=== PATIENT | female | born 1975 | race Asian ===

== ENCOUNTER 2016-07-12 01:03 | Emergency (ER) | payer OTHER, SELFPAY ==
[2016-07-12] MEDS ORDERED: ONDANSETRON 4MG/2ML VIAL (J2405) As Ordered ONE ×2 (01:40→02:46)
[2016-07-12] MEDS ORDERED: MORPHINE 4 MG/ML 1ML SYRINGE As Ordered ONE (01:40)
[2016-07-12 02:00] LABS: BASO % 0.5 % (0.0-1.0); EOS # 0.2 K/mm3 (0.0-0.50); EOS % 2.5 % (0.0-3.0); LARGE UNSTAINED CELL # 0.1 K/mm3 (0.0-0.4); LYMPH % 28.8 % (24.0-44.0); MEAN CORPUSCULAR HEMOGLOBIN 30.2 pg (27.0-33.0); MEAN CORPUSCULAR HGB CONC 33.2 g/dl (32.0-36.5); MEAN CORPUSCULAR VOLUME 91.1 fl (80.0-96.0); MONO # 0.3 K/mm3 (0.0-0.8); NEUTROPHILS # 4.3 K/mm3 (1.8-7.7); NEUTROPHILS % 62.3 % (36.0-66.0); PLATELET COUNT, AUTOMATED 262 k/mm3 (150-450); RED CELL DISTRIBUTION WIDTH 12.4 % (11.5-14.5); WHITE BLOOD COUNT 6.9 K/mm3 (4.0-10.0)
[2016-07-12 02:27] LABS: ALBUMIN 3.7 GM/DL (3.2-5.2); ALBUMIN/GLOBULIN RATIO 1.12 (1.00-1.93); ALKALINE PHOSPHATASE 71 U/L (45-117); ALT/SGPT 55 U/L (12-78); ANION GAP 7 MEQ/L (8-16); AST/SGOT 41 U/L (15-37); BILIRUBIN,DIRECT 0.2 MG/DL (0.0-0.2); BILIRUBIN,TOTAL 0.4 MG/DL (0.2-1.0); BLOOD UREA NITROGEN 9 MG/DL (7-18); CARBON DIOXIDE LEVEL 25 MEQ/L (21-32); CHLORIDE LEVEL 108 MEQ/L (98-107); CREATININE FOR GFR 0.77 MG/DL (0.55-1.02); GLOMERULAR FILTRATION RATE > 60.0 (>58); GLUCOSE, FASTING 107 MG/DL (70-105); POTASSIUM SERUM 3.7 MEQ/L (3.5-5.1); SODIUM LEVEL 140 MEQ/L (136-145)
[2016-07-12] MEDS ORDERED: ISOVUE-370 76% 100ML VIAL (Q9967) As Ordered ONE (02:39)
--- NOTE | 2016-07-12 04:00 | REPUSA ---
CLINICAL HISTORY: Abdominal pain. TECHNIQUE: Multiple axial, sagittal and coronal CT images were obtained through the abdomen and pelvi s after administration of intravenous contrast material. COMMENTS: Mild diffuse thickening of the wall of the bladder. Large bowel fecal stasis. The liver is of uniform attenuation without mass or defect. There is no intra or extrahepatic biliary ductal dilatation. The spleen is normal. The gallbladder is within normal limits. The pancreas is of normal contour and attenuation characteristics. There is no evidence of adrenal mass. Both kidneys demonstrate prompt and equal nephrograms. The kidneys are normal in size, shape and conf iguration. There is no evidence of renal or ureteral mass. No renal or ureteral calculi are identifie d. There is no hydroureter or hydronephrosis. No evidence for appendicitis. There is no bowel wall thickening. No evidence for small or large richmond l obstruction. There is no evidence of abdominal ascites or lymphadenopathy. There is no evidence of intrinsic or extrinsic bladder mass. There is no pelvic ascites or lymphadeno maycol. Images of the lung bases show no evidence of pleural or parenchymal mass. There are no pleural effusi ons. The bony structures are free of lytic or blastic lesions. IMPRESSION: Diffuse thickening of the wall of the bladder. Large bowel fecal stasis. Thank you for your kind referral of this patient.
--- NOTE | 2016-07-12 04:09 | EDDOCDS ---
Physician Documentation [facility] Name: Haydee Stevens Age: 41 yrs Sex: Female : 1975 Arrival Date: 07/12/2016 Time: 01:03 Bed I2 / M2 Private MD: Debby Disposition: 07/12/16 04:00 Discharged to Home/Self Care. Impression: Cystitis, unspecified with hematuria. - Condition is Stable. - Prescriptions for Pyridium 200 mg Oral Tablet - take 1 tablet by ORAL route every 8 hours for 3 days; 9 tablet. Bactrim DS 800- 160 mg Oral Tablet - take 1 tablet by ORAL route every 12 hours for 5 days; 10 tablet. - Medication Reconciliation, Local Pharmacy Hours form. - Follow up: Debby; When: Call to arrange an appointment; Reason: Recheck today's complaints. - Problem is new. - Symptoms have improved. Historical: - Allergies: No known drug Allergies; - Home Meds: 1. Motrin 400 mg Oral tab (Last dose: 07/12/2016 00:15) 2. Tylenol 325 mg Oral tab 2 tabs (Last dose: 07/11/2016 21:00) - PMHx: none; - PSHx: ; - Social history: Smoking status: Patient states was never smoker of tobacco. No barriers to communication noted, The patient speaks fluent Hungarian, Speaks appropriately for age. - Family history: Not pertinent. - : The pt / caregiver states he / she is not on anticoagulants. Home medication list is obtained from the patient. - Exposure Risk Screening:: None identified. 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 2 in. (157.48 cm); Pain 10/10; 02:17 BP 134 / 87; Pulse 66; Resp 16; Pulse Ox 99% on R/A; Pain 10/10; ld5 03:30 BP 138 / 70; Pulse 64; Resp 16; Pulse Ox 97% ; Pain 0/10; slm 04:07 Temp 97.6(T); slm 04:07 Pain 0/10; slm 01:15 Body Mass Index 30.18 (74.84 kg, 157.48 cm) ko2 MDM: 01:24 UCG by Nursing ordered. mo1 01:37 NS 0.9% 1000 ml IV at bolus once ordered. mo1 01:38 Ondansetron 4 mg IVP once ordered. mo1 01:38 IV Saline Lock ordered. mo1 01:38 Undress patient appropriately for examination ordered. mo1 01:38 morphine 4 mg IVP once ordered. mo1 01:38 Basic Metabolic Profile Ordered. EDMS 01:38 CBC with Diff Ordered. EDMS 01:38 Lipase Ordered. EDMS 01:38 Liver Profile Ordered. EDMS 01:38 Urinalysis Ordered. EDMS 01:39 CT ABD & PELVIS: IV Contrast Only Ordered. EDMS 01:39 NOTHING BY MOUTH+DIET ordered. EDMS 02:05 Financial registration complete. [facility] 02:20 CBC with Diff Reviewed. mo1 02:20 Urinalysis Reviewed. mo1 02:31 Basic Metabolic Profile Reviewed. mo1 02:31 Liver Profile Reviewed. mo1 02:31 Lipase Reviewed. mo1 02:45 Ondansetron 4 mg IVP once ordered. mo1 04:07 [facility] Payment Agreement was scanned into [employer] and attached to record. [facility] Point of Care Testing: Urine : 01:28 hCG Reading: Negative; ko2 Ranges: Administered Medications: 01:55 Drug: NS 0.9% 1000 ml [sodium chloride 0.9 % intravenous solution] Route: IV; Rate: slm bolus; Site: right antecubital; 04:07 Follow up: IV Status: Completed infusion [facility] 01:57 Drug: morphine 4 mg [morphine 4 mg/mL intravenous cartridge (1 mL)] Route: IVP; Site: ld5 right antecubital; 02:17 Follow up: BP 134 / 87; Pulse 66 bpm; Resp 16 bpm; Pulse Ox 99% RA; Pain 10/10 Adult; ld5 Response: Confirmed pt not driving.; Pain is unchanged, physician notified 04:07 Follow up: Pain 0/10 Adult [facility] 01:58 Drug: Ondansetron 4 mg [ondansetron HCl 2 mg/mL intravenous solution (2 mL)] Route: ld5 IVP; Site: right antecubital; 02:56 Drug: Ondansetron 4 mg [ondansetron HCl 2 mg/mL intravenous solution (2 mL)] Route: ld5 IVP; Site: right antecubital; 03:29 Follow up: Response: Nausea is decreased [facility] Signatures: Dispatcher [employer] EDOdalys Granados,RN RN ld5 Jorge Smith DO DO cs11 Earnest Aguirre PA PA mo1 Maryann Callejas LPN LPN [facility] Argelia Sosa RN RN ko2 Zulma Porter [facility] The chart was reviewed and I authenticate all verbal orders and agree with the evaluation and treatment provided.Attachments: 04:07 [facility] Payment Agreement [facility] MTDD
--- NOTE | 2016-07-12 04:10 | EDDOCDS ---
Nurse's Notes [facility] Name: Haydee Stevens Age: 41 yrs Sex: Female : 1975 Arrival Date: 07/12/2016 Time: 01:03 Bed I2 / M2 Private MD: Debby Diagnosis: Cystitis, unspecified with hematuria Presentation: 07/12 01:10 Presenting complaint: Patient states: Stomach cramps since this morning "that feel like ko2 i'm having a kid, i'm vomiting and can barely breath, it hurts". Risk factors: the patient reports Currently mestruating. Suicide/Homicide risk assessment- the patient denies having any suicidal and/or homicidal ideations and does not present with any other emotional, behavioral or mental health complaints. 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 Transition of care: patient was not received from another setting of care. 01:10 Method Of Arrival: Walkin/Carried/Asstd ko2 01:18 Adult Sepsis Screening: The patient does not have new or worsening altered mentation. ko2 Patient's respiratory rate is less than 22. Systolic blood pressure is greater than 100. Patient has a qSOFA score of 0- Negative Sepsis Screen. 01:18 Acuity: NAOMI Level 3 ko2 Triage Assessment: 01:14 General: Appears distressed, Behavior is cooperative, crying, restless. Pain: Location: ko2 suprapubic area Pain currently is 10 out of 10 on a pain scale. HIV screening NA for this visit Offered previously. The patient is triaged at the bedside. See Assessment in Nurses Notes section of ED record. Neurological: Level of Consciousness is awake, alert. Respiratory: Airway is patent Respiratory effort is even, unlabored. GI: Abdomen is non- distended. Derm: No deficits noted. 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 Motrin 400 mg Oral tab (Last dose: 07/12/2016 00:15) 2. Tylenol 325 mg Oral tab 2 tabs (Last dose: 07/11/2016 21:00) - PMHx: none; - PSHx: ; - Social history: Smoking status: Patient states was never smoker of tobacco. No barriers to communication noted, The patient speaks fluent Kyrgyz, Speaks appropriately for age. - Family history: Not pertinent. - : The pt / caregiver states he / she is not on anticoagulants. Home medication list is obtained from the patient. - Exposure Risk Screening:: None identified. Screenin:17 Screening information is obtained from the patient. Fall risk: No risks identified. ko2 Assistance ADL's: requires no assistance with activities of daily living. Abuse/DV Screen: The patient / caregiver reports he/she is: not in a situation that causes fear, pain or injury. Nutritional screening: No deficits noted. Advance Directives: Currently, there is no health care proxy. home support is adequate. Assessment: 01:58 General: Appears uncomfortable, Pt moaning and restless in bed. When questions asked of ld5 pt, pt able to speak in full sentences with no distress. Pain: Location: suprapubic area Pain currently is 10 out of 10 on a pain scale. Pain: Pain began 0730. Neurological: Level of Consciousness is awake, alert. Respiratory: Airway is patent Respiratory effort is even, unlabored. GI: Abdomen is non- distended Bowel sounds present X 4 quads. Abd is tender to palpation in suprapubic area Reports nausea, vomiting. : Denies burning with urination, pain with urination. 02:18 General: Pt laying on side in bed. Reports no change in pain. Provider aware. Will ld5 continue to monitor. 02:56 General: Pt returned from CT vomiting. Provider aware and pt medicated per orders. ld5 Ambulated to bathroom with no distress. Will continue to monitor. 03:29 General: Appears in no apparent distress, comfortable, Behavior is cooperative, pt slm resting on stretcher reports felling better. 04:08 Reassessment: Patient appears in no apparent distress at this time. Patient states slm feeling better. Patient states symptoms have improved. Vital Signs: 01:15 BP 134 / 96; Pulse 67; Resp 20; Temp 98.7; Pulse Ox 97% ; Weight 74.84 kg; Height 5 ft. ko2 2 in. (157.48 cm); Pain 10/10; 02:17 BP 134 / 87; Pulse 66; Resp 16; Pulse Ox 99% on R/A; Pain 10/10; ld5 03:30 BP 138 / 70; Pulse 64; Resp 16; Pulse Ox 97% ; Pain 0/10; slm 04:07 Temp 97.6(T); slm 04:07 Pain 0/10; slm 01:15 Body Mass Index 30.18 (74.84 kg, 157.48 cm) ko2 Vitals: 01:15 Log In Time: July 12, 2016 at 01:03. ko2 ED Course: 01:05 Patient visited by Mani Dacosta Reg. pm4 01:05 Debby is Private Physician. pm4 01:05 Patient moved to Waiting pm4 01:09 Patient moved to Triage 1 ko2 01:18 Triage Initiated ko2 01:28 Earnest Aguirre PA is PHCP. mo1 01:28 Jorge Smith DO is Attending Physician. mo1 01:37 Patient visited by Earnest Aguirre PA. mo1 01:38 Patient moved to I2 / M2 ld5 01:50 Urinalysis Sent. ld5 01:54 Maryann Callejas LPN is Primary Nurse. slm 01:54 Inserted saline lock: 20 gauge in right antecubital area and blood collected. The slm patient tolerated the procedure well. 01:54 Basic Metabolic Profile Sent. slm 01:54 CBC with Diff Sent. slm 01:55 Lipase Sent. slm 01:55 Liver Profile Sent. slm 02:00 Patient visited by Odalys Wilson,JOHNNY. ld5 02:19 Patient visited by Odalys Wilson,RN. ld5 02:57 Patient visited by Odalys Wilson,JOHNNY. ld5 04:00 Debby is Referral Physician. cs11 04:07 [facility] Payment Agreement was scanned into [employer] and attached to record. [facility] 04:07 CT ABD & PELVIS: IV Contrast Only Returned. EDMS 04:07 Discontinued lock intact, bleeding controlled, pressure dressing applied, No slm redness/swelling at site. No procedures done that require assistance. 04:08 Patient visited by Maryann Callejas LPN. slm 04:08 The patient / caregiver is instructed regarding the plan of care and ED course. Patient slm has correct armband on for positive identification. Bed in low position. Call light in reach. Side rails up X 1. Administered Medications: 01:55 Drug: NS 0.9% 1000 ml [sodium chloride 0.9 % intravenous solution] Route: IV; Rate: slm bolus; Site: right antecubital; 04:07 Follow up: IV Status: Completed infusion [facility] 01:57 Drug: morphine 4 mg [morphine 4 mg/mL intravenous cartridge (1 mL)] Route: IVP; Site: ld5 right antecubital; 02:17 Follow up: BP 134 / 87; Pulse 66 bpm; Resp 16 bpm; Pulse Ox 99% RA; Pain 10 Adult; ld5 Response: Confirmed pt not driving.; Pain is unchanged, physician notified 04:07 Follow up: Pain 0/10 Adult [facility] 01:58 Drug: Ondansetron 4 mg [ondansetron HCl 2 mg/mL intravenous solution (2 mL)] Route: ld5 IVP; Site: right antecubital; 02:56 Drug: Ondansetron 4 mg [ondansetron HCl 2 mg/mL intravenous solution (2 mL)] Route: ld5 IVP; Site: right antecubital; 03:29 Follow up: Response: Nausea is decreased slm Point of Care Testing: Urine : 01:28 hCG Reading: Negative; ko2 Ranges: Order Results: Lab Order: Basic Metabolic Profile; SPEC'M 07/12/16 01:51 Test: GLUCOSE, FASTING; Value: 107; Range: 70-105; Abnormal: Above high normal; Units: MG/DL; Status: F Test: BLOOD UREA NITROGEN; Value: 9; Range: 7-18; Units: MG/DL; Status: F Test: CREATININE FOR GFR; Value: 0.77; Range: 0.55-1.02; Units: MG/DL; Status: F Test: GLOMERULAR FILTRATION RATE; Value: > 60.0; Range: >58; Status: F Test: SODIUM LEVEL; Value: 140; Range: 136-145; Units: MEQ/L; Status: F Test: POTASSIUM SERUM; Value: 3.7; Range: 3.5-5.1; Units: MEQ/L; Status: F Test: CHLORIDE LEVEL; Value: 108; Range: 98-107; Abnormal: Above high normal; Units: MEQ/L; Status: F Test: CARBON DIOXIDE LEVEL; Value: 25; Range: 21-32; Units: MEQ/L; Status: F Test: ANION GAP; Value: 7; Range: 8-16; Abnormal: Below low normal; Units: MEQ/L; Status: F Test: CALCIUM LEVEL; Value: 8.0; Range: 8.5-10.1; Abnormal: Below low normal; Units: MG/DL; Status: F Test Note: ; Units are mL/min/1.73 m2 Chronic Kidney Disease Staging per NKF: Stage I & II GFR >=60 Normal to Mildly Decreased Stage III GFR 30-59 Moderately Decreased Stage IV GFR 15-29 Severely Decreased Stage V GFR <15 Very Little GFR Left ESRD GFR <15 on ITINERANT TEACHER ASSISTANT Lab Order: CBC with Diff; SPEC'M 07/12/16 01:51 Test: WHITE BLOOD COUNT; Value: 6.9; Range: 4.0-10.0; Units: K/mm3; Status: F Test: RED BLOOD COUNT; Value: 4.59; Range: 4.00-5.40; Units: M/mm3; Status: F Test: HEMOGLOBIN; Value: 13.9; Range: 12.0-16.0; Units: g/dl; Status: F Test: HEMATOCRIT; Value: 41.9; Range: 36.0-47.0; Units: %; Status: F Test: MEAN CORPUSCULAR VOLUME; Value: 91.1; Range: 80.0-96.0; Units: fl; Status: F Test: MEAN CORPUSCULAR HEMOGLOBIN; Value: 30.2; Range: 27.0-33.0; Units: pg; Status: F Test: MEAN CORPUSCULAR HGB CONC; Value: 33.2; Range: 32.0-36.5; Units: g/dl; Status: F Test: RED CELL DISTRIBUTION WIDTH; Value: 12.4; Range: 11.5-14.5; Units: %; Status: F Test: PLATELET COUNT, AUTOMATED; Value: 262; Range: 150-450; Units: k/mm3; Status: F Test: NEUTROPHILS %; Value: 62.3; Range: 36.0-66.0; Units: %; Status: F Test: LYMPH %; Value: 28.8; Range: 24.0-44.0; Units: %; Status: F Test: MONO %; Value: 4.0; Range: 0.0-5.0; Units: %; Status: F Test: EOS %; Value: 2.5; Range: 0.0-3.0; Units: %; Status: F Test: BASO %; Value: 0.5; Range: 0.0-1.0; Units: %; Status: F Test: LARGE UNSTAINED CELL %; Value: 2.0; Range: 0.0-4.0; Units: %; Status: F Test: NEUTROPHILS #; Value: 4.3; Range: 1.8-7.7; Units: K/mm3; Status: F Test: LYMPH #; Value: 2.0; Range: 1.5-4.5; Units: K/mm3; Status: F Test: MONO #; Value: 0.3; Range: 0.0-0.8; Units: K/mm3; Status: F Test: EOS #; Value: 0.2; Range: 0.0-0.50; Units: K/mm3; Status: F Test: BASO #; Value: 0.0; Range: 0.0-0.2; Units: K/mm3; Status: F Test: LARGE UNSTAINED CELL #; Value: 0.1; Range: 0.0-0.4; Units: K/mm3; Status: F Lab Order: Lipase; SPEC'M 07/12/16 01:51 Test: LIPASE; Value: 204; Range: 73-393; Units: U/L; Status: F Lab Order: Liver Profile; SPEC'M 07/12/16 01:51 Test: AST/SGOT; Value: 41; Range: 15-37; Abnormal: Above high normal; Units: U/L; Status: F Test: ALT/SGPT; Value: 55; Range: 12-78; Units: U/L; Status: F Test: ALKALINE PHOSPHATASE; Value: 71; Range: 45-117; Units: U/L; Status: F Test: BILIRUBIN,TOTAL; Value: 0.4; Range: 0.2-1.0; Units: MG/DL; Status: F Test: BILIRUBIN,DIRECT; Value: 0.2; Range: 0.0-0.2; Units: MG/DL; Status: F Test: TOTAL PROTEIN; Value: 7.0; Range: 6.4-8.2; Units: GM/DL; Status: F Test: ALBUMIN; Value: 3.7; Range: 3.2-5.2; Units: GM/DL; Status: F Test: ALBUMIN/GLOBULIN RATIO; Value: 1.12; Range: 1.00-1.93; Status: F Lab Order: Urinalysis; SPEC'M 07/12/16 01:45 Test: APPEARANCE, URINE; Value: CLOUDY; Range: CLEAR; Abnormal: Above high normal; Status: F Test: COLOR, URINE; Value: RED; Range: YELLOW; Abnormal: Above high normal; Status: F Test: PH,URINE; Value: 6.0; Range: 5.0-9.0; Units: UNITS; Status: F Test: SPECIFIC GRAVITY URINE AUTO; Value: 1.014; Range: 1.002-1.035; Status: F Test: PROTEIN, URINE AUTO; Value: 2+; Range: NEGATIVE; Abnormal: Above high normal; Units: mg/dL; Status: F Test: GLUCOSE, URINE (UA) AUTO; Value: NEGATIVE; Range: NEGATIVE; Units: mg/dL; Status: F Test: KETONE, URINE AUTO; Value: NEGATIVE; Range: NEGATIVE; Units: mg/dL; Status: F Test: UROBILINOGEN, URINE AUTO; Value: 0.2; Range: 0.0-2.0; Units: mg/dL; Status: F Test: BILIRUBIN, URINE AUTO; Value: NEGATIVE; Range: NEGATIVE; Status: F Test: NITRITE, URINE AUTO; Value: NEGATIVE; Range: NEGATIVE; Status: F Test: LEUKOCYTE ESTERASE, URINE AUTO; Value: TRACE; Range: NEGATIVE; Abnormal: Above high normal; Status: F Test: BLOOD, URINE BLOOD; Value: 3+; Range: NEGATIVE; Abnormal: Above high normal; Status: F Test: WBC, URINE AUTO; Value: 31; Range: 0-3; Abnormal: Above high normal; Units: /HPF; Status: F Test: RBC, URINE AUTO; Value: TNTC; Range: 0-3; Abnormal: Above high normal; Units: /HPF; Status: F Test: BACTERIA, URINE AUTO; Value: 1+; Range: NEGATIVE; Abnormal: Above high normal; Status: F Test: SQUAMOUS EPITHELIAL CELL UR AU; Value: 4; Range: 0-6; Units: /HPF; Status: F Test: HYALINE CAST, URINE AUTO; Value: 0; Range: 0-1; Units: /LPF; Status: F Radiology Order: CT ABD & PELVIS: IV Contrast Only Test: CT ABD & PELVIS: IV Contrast Only REASON FOR EXAMINATION: mid lower abd pain; ; CLINICAL HISTORY: Abdominal pain.; TECHNIQUE: Multiple axial, sagittal and coronal CT images were obtained through the abdomen and pelvi; s after administration of intravenous contrast material.; COMMENTS:; Mild diffuse thickening of the wall of the bladder.; Large bowel fecal stasis.; The liver is of uniform attenuation without mass or defect. There is no intra or extrahepatic biliary; ductal dilatation. The spleen is normal. The gallbladder is within normal limits. The pancreas is of; normal contour and attenuation characteristics. There is no evidence of adrenal mass.; Both kidneys demonstrate prompt and equal nephrograms. The kidneys are normal in size, shape and conf; iguration. There is no evidence of renal or ureteral mass. No renal or ureteral calculi are identifie; d. There is no hydroureter or hydronephrosis.; No evidence for appendicitis. There is no bowel wall thickening. No evidence for small or large richmond; l obstruction. There is no evidence of abdominal ascites or lymphadenopathy.; There is no evidence of intrinsic or extrinsic bladder mass. There is no pelvic ascites or lymphadeno; maycol.; Images of the lung bases show no evidence of pleural or parenchymal mass. There are no pleural effusi; ons.; The bony structures are free of lytic or blastic lesions.; IMPRESSION:; Diffuse thickening of the wall of the bladder.; Large bowel fecal stasis.; Thank you for your kind referral of this patient.; ; Outcome: 04:00 Discharge ordered by Provider. cs11 04:07 Discharge Assessment: Patient awake, alert and oriented x 3. No cognitive and/or slm functional deficits noted. Patient verbalized understanding of disposition instructions. Patient awake and alert. obeys commands, patient administered narcotics - yes. Pt provided with safe discharge. The following High Risk Discharge criteria are identified: None. Discharged to home ambulatory, with family. Condition: good Condition: improved. Discharge instructions given to patient, Instructed on discharge instructions, follow up and referral plans. medication usage, Demonstrated understanding of instructions, medications, Pt was receptive of discharge instructions/ teaching. Prescriptions given X 2. CT Study completed. Property :Personal belongings accompany Pt. 04:08 Patient left the ED. elvis Signatures: Dispatcher [employer] EDOdalys Granados,RN RN ld5 Jorge Smith DO DO cs11 Earnest Aguirre, PA PA mo1 Maryann Callejas,BOOKBINDER CHIEF BOOKBINDER CHIEF Argelia Ledezma RN RN ko2 Zulma Porter [facility] Mani Dacosta, Reg Reg pm4 Corrections: (The following items were deleted from the chart) 02:19 01:58 General: Appears uncomfortable, ld5 ld5 MTDD
--- NOTE | 2016-07-14 05:10 | EDDOCDS ---
Physician Documentation [facility] Name: Haydee Stevens Age: 41 yrs Sex: Female : 1975 Arrival Date: 07/12/2016 Time: 01:03 Bed I2 / M2 Private MD: Debby Disposition: 07/12/16 04:00 Discharged to Home/Self Care. Impression: Cystitis, unspecified with hematuria. - Condition is Stable. - Prescriptions for Pyridium 200 mg Oral Tablet - take 1 tablet by ORAL route every 8 hours for 3 days; 9 tablet. Bactrim DS 800- 160 mg Oral Tablet - take 1 tablet by ORAL route every 12 hours for 5 days; 10 tablet. - Medication Reconciliation, Local Pharmacy Hours form. - Follow up: Debby; When: Call to arrange an appointment; Reason: Recheck today's complaints. - Problem is new. - Symptoms have improved. Historical: - Allergies: No known drug Allergies; - Home Meds: 1. Motrin 400 mg Oral tab (Last dose: 07/12/2016 00:15) 2. Tylenol 325 mg Oral tab 2 tabs (Last dose: 07/11/2016 21:00) - PMHx: none; - PSHx: ; - Social history: Smoking status: Patient states was never smoker of tobacco. No barriers to communication noted, The patient speaks fluent Hungarian, Speaks appropriately for age. - Family history: Not pertinent. - : The pt / caregiver states he / she is not on anticoagulants. Home medication list is obtained from the patient. - Exposure Risk Screening:: None identified. DIRECTOR OF MEDICAL EDUCATION: 07/12 01:15 LMP 07/12/2016 ko2 Vital Signs: 01:15 BP 134 / 96; Pulse 67; Resp 20; Temp 98.7; Pulse Ox 97% ; Weight 74.84 kg / 164.99 lbs; ko2 Height 5 ft. 2 in. (157.48 cm); Pain 10/10; 02:17 BP 134 / 87; Pulse 66; Resp 16; Pulse Ox 99% on R/A; Pain 10/10; ld5 03:30 BP 138 / 70; Pulse 64; Resp 16; Pulse Ox 97% ; Pain 0/10; slm 04:07 Temp 97.6(T); slm 04:07 Pain 0/10; slm 01:15 Body Mass Index 30.18 (74.84 kg, 157.48 cm) ko2 MDM: 01:24 UCG by Nursing ordered. mo1 01:37 NS 0.9% 1000 ml IV at bolus once ordered. mo1 01:38 Ondansetron 4 mg IVP once ordered. mo1 01:38 IV Saline Lock ordered. mo1 01:38 Undress patient appropriately for examination ordered. mo1 01:38 morphine 4 mg IVP once ordered. mo1 01:38 Basic Metabolic Profile Ordered. EDMS 01:38 CBC with Diff Ordered. EDMS 01:38 Lipase Ordered. EDMS 01:38 Liver Profile Ordered. EDMS 01:38 Urinalysis Ordered. EDMS 01:39 CT ABD & PELVIS: IV Contrast Only Ordered. EDMS 01:39 NOTHING BY MOUTH+DIET ordered. EDMS 02:05 Financial registration complete. slh 02:20 CBC with Diff Reviewed. mo1 02:20 Urinalysis Reviewed. mo1 02:31 Basic Metabolic Profile Reviewed. mo1 02:31 Liver Profile Reviewed. mo1 02:31 Lipase Reviewed. mo1 02:45 Ondansetron 4 mg IVP once ordered. mo1 04:07 [facility] [place] Payment Agreement was scanned into InvenQuery and attached to record. [facility] 14:11 T-Sheet-- Draft Copy was scanned into Inven[employer] and attached to record. Point of Care Testing: Urine : 01:28 hCG Reading: Negative; ko2 Ranges: Administered Medications: 01:55 Drug: NS 0.9% 1000 ml [sodium chloride 0.9 % intravenous solution] Route: IV; Rate: slm bolus; Site: right antecubital; 04:07 Follow up: IV Status: Completed infusion slm 01:57 Drug: morphine 4 mg [morphine 4 mg/mL intravenous cartridge (1 mL)] Route: IVP; Site: ld5 right antecubital; 02:17 Follow up: BP 134 / 87; Pulse 66 bpm; Resp 16 bpm; Pulse Ox 99% RA; Pain 10/10 Adult; ld5 Response: Confirmed pt not driving.; Pain is unchanged, physician notified 04:07 Follow up: Pain 0/10 Adult [facility] 01:58 Drug: Ondansetron 4 mg [ondansetron HCl 2 mg/mL intravenous solution (2 mL)] Route: ld5 IVP; Site: right antecubital; 02:56 Drug: Ondansetron 4 mg [ondansetron HCl 2 mg/mL intravenous solution (2 mL)] Route: ld5 IVP; Site: right antecubital; 03:29 Follow up: Response: Nausea is decreased sl Signatures: Dispatcher MedHost EDMS Cynthia Perez, Oniel Reg gb Odalys WilsonRN RN ld5 Jorge Smith DO DO cs11 Earnest Aguirre PA PA mo1 Maryann Callejas LPN LPN sl Argelia Sosa RN RN ko2 Zulma Porter [facility] The chart was reviewed and I authenticate all verbal orders and agree with the evaluation and treatment provided.Attachments: 04:07 [facility] Payment Agreement [facility] 14:11 T-Sheet-- Draft Copy Chart Complete MTDD
--- NOTE | 2016-07-14 05:10 | EDDOCDS ---
Physician Documentation [facility] Name: Haydee Stevens Age: 41 yrs Sex: Female : 1975 Arrival Date: 07/12/2016 Time: 01:03 Bed I2 / M2 Private MD: Debby Disposition: 07/12/16 04:00 Discharged to Home/Self Care. Impression: Cystitis, unspecified with hematuria. - Condition is Stable. - Prescriptions for Pyridium 200 mg Oral Tablet - take 1 tablet by ORAL route every 8 hours for 3 days; 9 tablet. Bactrim DS 800- 160 mg Oral Tablet - take 1 tablet by ORAL route every 12 hours for 5 days; 10 tablet. - Medication Reconciliation, Local Pharmacy Hours form. - Follow up: Debby; When: Call to arrange an appointment; Reason: Recheck today's complaints. - Problem is new. - Symptoms have improved. Historical: - Allergies: No known drug Allergies; - Home Meds: 1. Motrin 400 mg Oral tab (Last dose: 07/12/2016 00:15) 2. Tylenol 325 mg Oral tab 2 tabs (Last dose: 07/11/2016 21:00) - PMHx: none; - PSHx: ; - Social history: Smoking status: Patient states was never smoker of tobacco. No barriers to communication noted, The patient speaks fluent Hungarian, Speaks appropriately for age. - Family history: Not pertinent. - : The pt / caregiver states he / she is not on anticoagulants. Home medication list is obtained from the patient. - Exposure Risk Screening:: None identified. 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 2 in. (157.48 cm); Pain 10/10; 02:17 BP 134 / 87; Pulse 66; Resp 16; Pulse Ox 99% on R/A; Pain 10/10; ld5 03:30 BP 138 / 70; Pulse 64; Resp 16; Pulse Ox 97% ; Pain 0/10; slm 04:07 Temp 97.6(T); slm 04:07 Pain 0/10; slm 01:15 Body Mass Index 30.18 (74.84 kg, 157.48 cm) ko2 MDM: 01:24 UCG by Nursing ordered. mo1 01:37 NS 0.9% 1000 ml IV at bolus once ordered. mo1 01:38 Ondansetron 4 mg IVP once ordered. mo1 01:38 IV Saline Lock ordered. mo1 01:38 Undress patient appropriately for examination ordered. mo1 01:38 morphine 4 mg IVP once ordered. mo1 01:38 Basic Metabolic Profile Ordered. EDMS 01:38 CBC with Diff Ordered. EDMS 01:38 Lipase Ordered. EDMS 01:38 Liver Profile Ordered. EDMS 01:38 Urinalysis Ordered. EDMS 01:39 CT ABD & PELVIS: IV Contrast Only Ordered. EDMS 01:39 NOTHING BY MOUTH+DIET ordered. EDMS 02:05 Financial registration complete. slh 02:20 CBC with Diff Reviewed. mo1 02:20 Urinalysis Reviewed. mo1 02:31 Basic Metabolic Profile Reviewed. mo1 02:31 Liver Profile Reviewed. mo1 02:31 Lipase Reviewed. mo1 02:45 Ondansetron 4 mg IVP once ordered. mo1 04:07 [facility] [place] Payment Agreement was scanned into ScaleMP and attached to record. [facility] 14:11 T-Sheet-- Draft Copy was scanned into Scale[employer] and attached to record. Point of Care Testing: Urine : 01:28 hCG Reading: Negative; ko2 Ranges: Administered Medications: 01:55 Drug: NS 0.9% 1000 ml [sodium chloride 0.9 % intravenous solution] Route: IV; Rate: slm bolus; Site: right antecubital; 04:07 Follow up: IV Status: Completed infusion slm 01:57 Drug: morphine 4 mg [morphine 4 mg/mL intravenous cartridge (1 mL)] Route: IVP; Site: ld5 right antecubital; 02:17 Follow up: BP 134 / 87; Pulse 66 bpm; Resp 16 bpm; Pulse Ox 99% RA; Pain 10/10 Adult; ld5 Response: Confirmed pt not driving.; Pain is unchanged, physician notified 04:07 Follow up: Pain 0/10 Adult [facility] 01:58 Drug: Ondansetron 4 mg [ondansetron HCl 2 mg/mL intravenous solution (2 mL)] Route: ld5 IVP; Site: right antecubital; 02:56 Drug: Ondansetron 4 mg [ondansetron HCl 2 mg/mL intravenous solution (2 mL)] Route: ld5 IVP; Site: right antecubital; 03:29 Follow up: Response: Nausea is decreased sl Signatures: Dispatcher MedHost EDMS Cynthia Perez, Oniel Reg gb Odalys WilsonRN RN ld5 Jorge Smith DO DO cs11 Earnest Aguirre PA PA mo1 Maryann Callejas LPN LPN sl Argelia Sosa RN RN ko2 Zulma Porter [facility] The chart was reviewed and I authenticate all verbal orders and agree with the evaluation and treatment provided.Attachments: 04:07 [facility] Payment Agreement [facility] 14:11 T-Sheet-- Draft Copy Chart Complete MTDD
--- NOTE | 2016-07-14 05:10 | EDDOCDS ---
Nurse's Notes [facility] Name: Haydee Stevens Age: 41 yrs Sex: Female : 1975 Arrival Date: 07/12/2016 Time: 01:03 Bed I2 / M2 Private MD: Debby Diagnosis: Cystitis, unspecified with hematuria Presentation: 07/12 01:10 Presenting complaint: Patient states: Stomach cramps since this morning "that feel like ko2 i'm having a kid, i'm vomiting and can barely breath, it hurts". Risk factors: the patient reports Currently mestruating. Suicide/Homicide risk assessment- the patient denies having any suicidal and/or homicidal ideations and does not present with any other emotional, behavioral or mental health complaints. Status: Patient is not a environmental services associate or dependent. 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 Transition of care: patient was not received from another setting of care. 01:10 Method Of Arrival: Walkin/Carried/Asstd ko2 01:18 Adult Sepsis Screening: The patient does not have new or worsening altered mentation. ko2 Patient's respiratory rate is less than 22. Systolic blood pressure is greater than 100. Patient has a qSOFA score of 0- Negative Sepsis Screen. 01:18 Acuity: NAOMI Level 3 ko2 Triage Assessment: 01:14 General: Appears distressed, Behavior is cooperative, crying, restless. Pain: Location: ko2 suprapubic area Pain currently is 10 out of 10 on a pain scale. HIV screening NA for this visit Offered previously. The patient is triaged at the bedside. See Assessment in Nurses Notes section of ED record. Neurological: Level of Consciousness is awake, alert. Respiratory: Airway is patent Respiratory effort is even, unlabored. GI: Abdomen is non- distended. Derm: No deficits noted. ASSISTANT DIRECTOR OF ADMISSIONS: 01:15 LMP 07/12/2016 ko2 Historical: - Allergies: No known drug Allergies; - Home Meds: 1. Motrin 400 mg Oral tab (Last dose: 07/12/2016 00:15) 2. Tylenol 325 mg Oral tab 2 tabs (Last dose: 07/11/2016 21:00) - PMHx: none; - PSHx: ; - Social history: Smoking status: Patient states was never smoker of tobacco. No barriers to communication noted, The patient speaks fluent Danish, Speaks appropriately for age. - Family history: Not pertinent. - : The pt / caregiver states he / she is not on anticoagulants. Home medication list is obtained from the patient. - Exposure Risk Screening:: None identified. Screenin:17 Screening information is obtained from the patient. Fall risk: No risks identified. ko2 Assistance ADL's: requires no assistance with activities of daily living. Abuse/DV Screen: The patient / caregiver reports he/she is: not in a situation that causes fear, pain or injury. Nutritional screening: No deficits noted. Advance Directives: Currently, there is no health care proxy. home support is adequate. Assessment: 01:58 General: Appears uncomfortable, Pt moaning and restless in bed. When questions asked of ld5 pt, pt able to speak in full sentences with no distress. Pain: Location: suprapubic area Pain currently is 10 out of 10 on a pain scale. Pain: Pain began 0730. Neurological: Level of Consciousness is awake, alert. Respiratory: Airway is patent Respiratory effort is even, unlabored. GI: Abdomen is non- distended Bowel sounds present X 4 quads. Abd is tender to palpation in suprapubic area Reports nausea, vomiting. : Denies burning with urination, pain with urination. 02:18 General: Pt laying on side in bed. Reports no change in pain. Provider aware. Will ld5 continue to monitor. 02:56 General: Pt returned from CT vomiting. Provider aware and pt medicated per orders. ld5 Ambulated to bathroom with no distress. Will continue to monitor. 03:29 General: Appears in no apparent distress, comfortable, Behavior is cooperative, pt slm resting on stretcher reports felling better. 04:08 Reassessment: Patient appears in no apparent distress at this time. Patient states slm feeling better. Patient states symptoms have improved. Vital Signs: 01:15 BP 134 / 96; Pulse 67; Resp 20; Temp 98.7; Pulse Ox 97% ; Weight 74.84 kg; Height 5 ft. ko2 2 in. (157.48 cm); Pain 10/10; 02:17 BP 134 / 87; Pulse 66; Resp 16; Pulse Ox 99% on R/A; Pain 10/10; ld5 03:30 BP 138 / 70; Pulse 64; Resp 16; Pulse Ox 97% ; Pain 0/10; slm 04:07 Temp 97.6(T); slm 04:07 Pain 0/10; slm 01:15 Body Mass Index 30.18 (74.84 kg, 157.48 cm) ko2 Vitals: 01:15 Log In Time: July 12, 2016 at 01:03. ko2 ED Course: 01:05 Patient visited by Mani Dacosta Reg. pm4 01:05 Debby is Private Physician. pm4 01:05 Patient moved to Waiting pm4 01:09 Patient moved to Triage 1 ko2 01:18 Triage Initiated ko2 01:28 Earnest Aguirre PA is PHCP. mo1 01:28 Jorge Smith DO is Attending Physician. mo1 01:37 Patient visited by Earnest Aguirre PA. mo1 01:38 Patient moved to I2 / M2 ld5 01:50 Urinalysis Sent. ld5 01:54 Maryann Callejas LPN is Primary Nurse. slm 01:54 Inserted saline lock: 20 gauge in right antecubital area and blood collected. The slm patient tolerated the procedure well. 01:54 Basic Metabolic Profile Sent. slm 01:54 CBC with Diff Sent. slm 01:55 Lipase Sent. slm 01:55 Liver Profile Sent. slm 02:00 Patient visited by Odalys Wilson,JOHNNY. ld5 02:19 Patient visited by Odalys Wilson,RN. ld5 02:57 Patient visited by Odalys Wilson,JOHNNY. ld5 04:00 Debby is Referral Physician. cs11 04:07 [facility] Payment Agreement was scanned into Tellja and attached to record. [facility] 04:07 CT ABD & PELVIS: IV Contrast Only Returned. EDMS 04:07 Discontinued lock intact, bleeding controlled, pressure dressing applied, No slm redness/swelling at site. No procedures done that require assistance. 04:08 Patient visited by Maryann Callejas LPN. slm 04:08 The patient / caregiver is instructed regarding the plan of care and ED course. Patient slm has correct armband on for positive identification. Bed in low position. Call light in reach. Side rails up X 1. 14:11 T-Sheet-- Draft Copy was scanned into Tellja and attached to record. gb Administered Medications: 01:55 Drug: NS 0.9% 1000 ml [sodium chloride 0.9 % intravenous solution] Route: IV; Rate: slm bolus; Site: right antecubital; 04:07 Follow up: IV Status: Completed infusion [facility] 01:57 Drug: morphine 4 mg [morphine 4 mg/mL intravenous cartridge (1 mL)] Route: IVP; Site: ld5 right antecubital; 02:17 Follow up: BP 134 / 87; Pulse 66 bpm; Resp 16 bpm; Pulse Ox 99% RA; Pain 10/ Adult; ld5 Response: Confirmed pt not driving.; Pain is unchanged, physician notified 04:07 Follow up: Pain 0/10 Adult [facility] 01:58 Drug: Ondansetron 4 mg [ondansetron HCl 2 mg/mL intravenous solution (2 mL)] Route: ld5 IVP; Site: right antecubital; 02:56 Drug: Ondansetron 4 mg [ondansetron HCl 2 mg/mL intravenous solution (2 mL)] Route: ld5 IVP; Site: right antecubital; 03:29 Follow up: Response: Nausea is decreased slm Point of Care Testing: Urine : 01:28 hCG Reading: Negative; ko2 Ranges: Order Results: Lab Order: Basic Metabolic Profile; SPEC'M 07/12/16 01:51 Test: GLUCOSE, FASTING; Value: 107; Range: 70-105; Abnormal: Above high normal; Units: MG/DL; Status: F Test: BLOOD UREA NITROGEN; Value: 9; Range: 7-18; Units: MG/DL; Status: F Test: CREATININE FOR GFR; Value: 0.77; Range: 0.55-1.02; Units: MG/DL; Status: F Test: GLOMERULAR FILTRATION RATE; Value: > 60.0; Range: >58; Status: F Test: SODIUM LEVEL; Value: 140; Range: 136-145; Units: MEQ/L; Status: F Test: POTASSIUM SERUM; Value: 3.7; Range: 3.5-5.1; Units: MEQ/L; Status: F Test: CHLORIDE LEVEL; Value: 108; Range: 98-107; Abnormal: Above high normal; Units: MEQ/L; Status: F Test: CARBON DIOXIDE LEVEL; Value: 25; Range: 21-32; Units: MEQ/L; Status: F Test: ANION GAP; Value: 7; Range: 8-16; Abnormal: Below low normal; Units: MEQ/L; Status: F Test: CALCIUM LEVEL; Value: 8.0; Range: 8.5-10.1; Abnormal: Below low normal; Units: MG/DL; Status: F Test Note: ; Units are mL/min/1.73 m2 Chronic Kidney Disease Staging per NKF: Stage I & II GFR >=60 Normal to Mildly Decreased Stage III GFR 30-59 Moderately Decreased Stage IV GFR 15-29 Severely Decreased Stage V GFR <15 Very Little GFR Left ESRD GFR <15 on PROOF TECHNICIAN HELPER Lab Order: CBC with Diff; SPEC'M 07/12/16 01:51 Test: WHITE BLOOD COUNT; Value: 6.9; Range: 4.0-10.0; Units: K/mm3; Status: F Test: RED BLOOD COUNT; Value: 4.59; Range: 4.00-5.40; Units: M/mm3; Status: F Test: HEMOGLOBIN; Value: 13.9; Range: 12.0-16.0; Units: g/dl; Status: F Test: HEMATOCRIT; Value: 41.9; Range: 36.0-47.0; Units: %; Status: F Test: MEAN CORPUSCULAR VOLUME; Value: 91.1; Range: 80.0-96.0; Units: fl; Status: F Test: MEAN CORPUSCULAR HEMOGLOBIN; Value: 30.2; Range: 27.0-33.0; Units: pg; Status: F Test: MEAN CORPUSCULAR HGB CONC; Value: 33.2; Range: 32.0-36.5; Units: g/dl; Status: F Test: RED CELL DISTRIBUTION WIDTH; Value: 12.4; Range: 11.5-14.5; Units: %; Status: F Test: PLATELET COUNT, AUTOMATED; Value: 262; Range: 150-450; Units: k/mm3; Status: F Test: NEUTROPHILS %; Value: 62.3; Range: 36.0-66.0; Units: %; Status: F Test: LYMPH %; Value: 28.8; Range: 24.0-44.0; Units: %; Status: F Test: MONO %; Value: 4.0; Range: 0.0-5.0; Units: %; Status: F Test: EOS %; Value: 2.5; Range: 0.0-3.0; Units: %; Status: F Test: BASO %; Value: 0.5; Range: 0.0-1.0; Units: %; Status: F Test: LARGE UNSTAINED CELL %; Value: 2.0; Range: 0.0-4.0; Units: %; Status: F Test: NEUTROPHILS #; Value: 4.3; Range: 1.8-7.7; Units: K/mm3; Status: F Test: LYMPH #; Value: 2.0; Range: 1.5-4.5; Units: K/mm3; Status: F Test: MONO #; Value: 0.3; Range: 0.0-0.8; Units: K/mm3; Status: F Test: EOS #; Value: 0.2; Range: 0.0-0.50; Units: K/mm3; Status: F Test: BASO #; Value: 0.0; Range: 0.0-0.2; Units: K/mm3; Status: F Test: LARGE UNSTAINED CELL #; Value: 0.1; Range: 0.0-0.4; Units: K/mm3; Status: F Lab Order: Lipase; SPEC' 07/12/16 01:51 Test: LIPASE; Value: 204; Range: 73-393; Units: U/L; Status: F Lab Order: Liver Profile; SPEC' 07/12/16 01:51 Test: AST/SGOT; Value: 41; Range: 15-37; Abnormal: Above high normal; Units: U/L; Status: F Test: ALT/SGPT; Value: 55; Range: 12-78; Units: U/L; Status: F Test: ALKALINE PHOSPHATASE; Value: 71; Range: 45-117; Units: U/L; Status: F Test: BILIRUBIN,TOTAL; Value: 0.4; Range: 0.2-1.0; Units: MG/DL; Status: F Test: BILIRUBIN,DIRECT; Value: 0.2; Range: 0.0-0.2; Units: MG/DL; Status: F Test: TOTAL PROTEIN; Value: 7.0; Range: 6.4-8.2; Units: GM/DL; Status: F Test: ALBUMIN; Value: 3.7; Range: 3.2-5.2; Units: GM/DL; Status: F Test: ALBUMIN/GLOBULIN RATIO; Value: 1.12; Range: 1.00-1.93; Status: F Lab Order: Urinalysis; SPEC'M 07/12/16 01:45 Test: APPEARANCE, URINE; Value: CLOUDY; Range: CLEAR; Abnormal: Above high normal; Status: F Test: COLOR, URINE; Value: RED; Range: YELLOW; Abnormal: Above high normal; Status: F Test: PH,URINE; Value: 6.0; Range: 5.0-9.0; Units: UNITS; Status: F Test: SPECIFIC GRAVITY URINE AUTO; Value: 1.014; Range: 1.002-1.035; Status: F Test: PROTEIN, URINE AUTO; Value: 2+; Range: NEGATIVE; Abnormal: Above high normal; Units: mg/dL; Status: F Test: GLUCOSE, URINE (UA) AUTO; Value: NEGATIVE; Range: NEGATIVE; Units: mg/dL; Status: F Test: KETONE, URINE AUTO; Value: NEGATIVE; Range: NEGATIVE; Units: mg/dL; Status: F Test: UROBILINOGEN, URINE AUTO; Value: 0.2; Range: 0.0-2.0; Units: mg/dL; Status: F Test: BILIRUBIN, URINE AUTO; Value: NEGATIVE; Range: NEGATIVE; Status: F Test: NITRITE, URINE AUTO; Value: NEGATIVE; Range: NEGATIVE; Status: F Test: LEUKOCYTE ESTERASE, URINE AUTO; Value: TRACE; Range: NEGATIVE; Abnormal: Above high normal; Status: F Test: BLOOD, URINE BLOOD; Value: 3+; Range: NEGATIVE; Abnormal: Above high normal; Status: F Test: WBC, URINE AUTO; Value: 31; Range: 0-3; Abnormal: Above high normal; Units: /HPF; Status: F Test: RBC, URINE AUTO; Value: TNTC; Range: 0-3; Abnormal: Above high normal; Units: /HPF; Status: F Test: BACTERIA, URINE AUTO; Value: 1+; Range: NEGATIVE; Abnormal: Above high normal; Status: F Test: SQUAMOUS EPITHELIAL CELL UR AU; Value: 4; Range: 0-6; Units: /HPF; Status: F Test: HYALINE CAST, URINE AUTO; Value: 0; Range: 0-1; Units: /LPF; Status: F Radiology Order: CT ABD & PELVIS: IV Contrast Only Test: CT ABD & PELVIS: IV Contrast Only REASON FOR EXAMINATION: mid lower abd pain; ; CLINICAL HISTORY: Abdominal pain.; TECHNIQUE: Multiple axial, sagittal and coronal CT images were obtained through the abdomen and pelvi; s after administration of intravenous contrast material.; COMMENTS:; Mild diffuse thickening of the wall of the bladder.; Large bowel fecal stasis.; The liver is of uniform attenuation without mass or defect. There is no intra or extrahepatic biliary; ductal dilatation. The spleen is normal. The gallbladder is within normal limits. The pancreas is of; normal contour and attenuation characteristics. There is no evidence of adrenal mass.; Both kidneys demonstrate prompt and equal nephrograms. The kidneys are normal in size, shape and conf; iguration. There is no evidence of renal or ureteral mass. No renal or ureteral calculi are identifie; d. There is no hydroureter or hydronephrosis.; No evidence for appendicitis. There is no bowel wall thickening. No evidence for small or large [place]; l obstruction. There is no evidence of abdominal ascites or lymphadenopathy.; There is no evidence of intrinsic or extrinsic bladder mass. There is no pelvic ascites or lymphadeno; maycol.; Images of the lung bases show no evidence of pleural or parenchymal mass. There are no pleural effusi; ons.; The bony structures are free of lytic or blastic lesions.; IMPRESSION:; Diffuse thickening of the wall of the bladder.; Large bowel fecal stasis.; Thank you for your kind referral of this patient.; ; Outcome: 04:00 Discharge ordered by Provider. cs11 04:07 Discharge Assessment: Patient awake, alert and oriented x 3. No cognitive and/or slm functional deficits noted. Patient verbalized understanding of disposition instructions. Patient awake and alert. obeys commands, patient administered narcotics - yes. Pt provided with safe discharge. The following High Risk Discharge criteria are identified: None. Discharged to home ambulatory, with family. Condition: good Condition: improved. Discharge instructions given to patient, Instructed on discharge instructions, follow up and referral plans. medication usage, Demonstrated understanding of instructions, medications, Pt was receptive of discharge instructions/ teaching. Prescriptions given X 2. CT Study completed. Property :Personal belongings accompany Pt. 04:08 Patient left the ED. slm Signatures: Dispatcher MedHost EDMS Cynthia Perez, Reg Reg gb Odalys Wilson,RN RN ld5 Jorge Smith DO DO cs11 Earnest Aguirre PA PA mo1 Maryann Callejas,GLOVE WRAPPER GLOVE WRAPPER Argelia Mazariegos RN RN lupe2 Zulma Porter [facility] Mani Dacosta, Reg Reg pm4 Corrections: (The following items were deleted from the chart) 02:19 01:58 General: Appears uncomfortable, ld5 ld5 Chart Complete MTDD
== END 2016-07-12 04:08 | disposition home or self-care (01) ==
LOC: M ED 01:03
DX: N30.00 Acute cystitis without hematuria (principal); K56.41 Fecal impaction
CPT/HCPCS: 36415; 74177; 80048; 80076; 81001; 81025; 83690; 85025; 96361; 96374; 96375; 96376; 99284; J2405; Q9967

== ENCOUNTER 2018-08-25 11:46 | Emergency (ER) | payer OTHER, SELFPAY ==
[~2018-08-25] VITALS: Ht 157.5 cm; Wt 81.7 kg
[2018-08-25 12:21] LABS: BASO % 0.6 % (0.0-1.0); EOS # 0.1 10^3/uL (0.0-0.50); EOS % 1.4 % (0.0-3.0); HEMOGLOBIN 14.4 g/dl (12.0-15.5); LYMPH # 2.9 10^3/uL (1.5-4.5); LYMPH % 39.9 % (24.0-44.0); MEAN CORPUSCULAR HEMOGLOBIN 30.1 pg (27.0-33.0); MEAN CORPUSCULAR HGB CONC 33.5 g/dl (32.0-36.5); MEAN CORPUSCULAR VOLUME 89.8 fl (80.0-96.0); MONO # 0.4 10^3/uL (0.0-0.8); NEUTROPHILS # 3.7 10^3/uL (1.8-7.7); PLATELET COUNT, AUTOMATED 438 10^3/uL (150-450); RED BLOOD COUNT 4.79 10^6/uL (4.00-5.40); WHITE BLOOD COUNT 7.2 10^3/uL (4.0-10.0)
[2018-08-25 12:32] LABS: INR 0.91; PROTHROMBIN TIME 12.3 SECONDS (12.1-14.4)
[2018-08-25 12:33] LABS: PARTIAL THROMBOPLASTIN TIME 34.7 SECONDS (25.4-37.6)
[2018-08-25 12:57] LABS: ALBUMIN 3.9 GM/DL (3.2-5.2); ALT/SGPT 55 U/L (12-78); BILIRUBIN,DIRECT < 0.1 MG/DL (0.0-0.2); BILIRUBIN,TOTAL 0.3 MG/DL (0.2-1.0); BLOOD UREA NITROGEN 11 MG/DL (7-18); CALCIUM LEVEL 8.9 MG/DL (8.5-10.1); CARBON DIOXIDE LEVEL 27 MEQ/L (21-32); CHLORIDE LEVEL 104 MEQ/L (98-107); CK-MB VALUE MASS < 1.0 NG/ML (<3.6); CPK CREATINE PHOSPHOKINASE 115 U/L (26-192); CREATININE FOR GFR 0.68 MG/DL (0.55-1.30); FREE T4 1.26 NG/DL (0.76-1.46); GLOMERULAR FILTRATION RATE > 60.0 (>58); GLUCOSE, FASTING 99 MG/DL (70-100); LIPASE 224 U/L (73-393); MB/CK RELATIVE INDEX 0.87 (< OR =4); POTASSIUM SERUM 4.5 MEQ/L (3.5-5.1); SODIUM LEVEL 139 MEQ/L (136-145); TOTAL PROTEIN 7.5 GM/DL (6.4-8.2); TROPONIN I < 0.02 NG/ML (< 0.10)
[2018-08-25] MEDS ORDERED: ISOVUE-370 76% 100ML VIAL (Q9967) As Ordered ONE (13:59)
[2018-08-25] MEDS ORDERED: GI COCKTAIL 50ML BTL(HYOSCYAMINE/MAALOX/LIDOCAINE VISCOUS)(1:3:1) PO ONE (14:00)
[2018-08-25] MEDS ORDERED: KETOROLAC 30 MG/ML VIAL (J1885) IV ONE (14:00)
--- NOTE | 2018-08-25 14:00 | REP ---
CHEST, TWO VIEWS: COMPARISON: 12/12/2008. There appears to be a tiny calcified granuloma in the right lung base. No acute infiltrate or pulmonary edema is seen. The heart is normal in size. The mediastinal silhouette is unchanged. Visualized osseous structures are unremarkable. IMPRESSION: No acute pulmonary disease. Electronically Signed by Jose Resendiz MD 08/28/2018 11:26 A
--- NOTE | 2018-08-25 14:58 | REP ---
CT ANGIOGRAM CHEST: TECHNIQUE: Axial contrast enhanced images from the thoracic inlet to the upper abdomen using 100 mL Isovue 370 intravenous contrast material with multiplanar reformations. There is no evidence of pulmonary embolism. There is no thoracic aortic aneurysm or dissection. There is moderate cardiomegaly. There is no mediastinal, hilar or chest wall lymphadenopathy. 1.2 cm nodule is seen in the left lobe of the thyroid. Hazy ground-glass opacities are seen in both lungs, predominantly in the dependent portions probably representing atelectatic changes although subtle alveolar infiltrates cannot be excluded. Calcified granuloma is seen in the liver. There are mild degenerative changes of the spine. IMPRESSION: No CT evidence of pulmonary embolism or thoracic aortic dissection. Mild cardiomegaly. Hazy ground-glass opacities in the lungs may represent dependent atelectatic changes as they are located predominantly posteriorly. However, subtle alveolar infiltrates bilaterally cannot be excluded. 1.2 cm nodule left lobe of the thyroid, recommend followup thyroid ultrasound. Electronically Signed by Jose Resendiz MD 08/28/2018 11:43 A
[2018-08-25] MEDS ORDERED: HYDROMORPHONE HCL 0.5 MG/ 0.5 ML SYRINGE (J1170 PER 1) IV PRN (16:00)
[2018-08-25] MEDS ORDERED: HYDROmorphone HCL 1 MG/ML SYRINGE (J1170) IV PRN (16:00)
[2018-08-25] MEDS ORDERED: AZITHROMYCIN 250 MG TAB PO ONE (16:15)
[2018-08-25] MEDS ORDERED: NORC1TAB4 PO (17:37)
[2018-08-25] MEDS ORDERED: IBUP-1114 PO (17:37)
[2018-08-25] MEDS ORDERED: AZIT-10 PO (17:44)
[2018-08-25 18:36] VITALS: BP 184/88
--- NOTE | 2018-08-25 18:49 | ECGEPIP ---
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
--- NOTE | 2018-08-28 13:58 | ED PDOC ---
Post-Departure Follow-Up dr quiñonez faxed formal report of cta chest for fu Kurt Em MD Aug 28, 2018 13:58
== END 2018-08-25 18:46 | disposition home or self-care (01) ==
LOC: M ED 11:46
DX: J18.9 Pneumonia, unspecified organism (principal); E04.1 Nontoxic single thyroid nodule; Z79.899 Other long term (current) drug therapy
CPT/HCPCS: 71046; 71275; 80048; 80076; 82550; 82553; 83690; 84439; 84443; 84484; 85025; 85610; 85730; 93005; 93041; 94760; 96374; 99285; J1885; Q9967

== ENCOUNTER 2018-09-02 12:24 | Emergency (ER) | payer OTHER ==
[~2018-09-02] VITALS: Ht 152.4 cm; Wt 77.3 kg
[~2018-09-02 12:24] MED LIST: AZIT-10 PO; IBUP-1114 PO; NORC1TAB4 PO
[2018-09-02] MEDS ORDERED: CYCL10TA PO (12:50)
[2018-09-02] MEDS ORDERED: MORPHINE 2 MG/ML 1ML SYRINGE (J2270) IV ONE (14:00)
[2018-09-02] MEDS ORDERED: KETOROLAC 30 MG/ML VIAL (J1885) IV ONE (14:00)
[2018-09-02] MEDS ORDERED: methylPREDNISolone INJ 125 MG/2 ML VIAL (J2930) IV ONE (14:00)
[2018-09-02 14:30] LABS: BASO # 0.1 10^3/uL (0.0-0.2); BASO % 0.8 % (0.0-1.0); EOS # 0.1 10^3/uL (0.0-0.50); EOS % 1.7 % (0.0-3.0); HEMATOCRIT 42.1 % (36.0-47.0); HEMOGLOBIN 14.2 g/dl (12.0-15.5); LYMPH # 2.7 10^3/uL (1.5-4.5); LYMPH % 41.1 % (24.0-44.0); MEAN CORPUSCULAR HEMOGLOBIN 30.1 pg (27.0-33.0); MEAN CORPUSCULAR HGB CONC 33.7 g/dl (32.0-36.5); MEAN CORPUSCULAR VOLUME 89.2 fl (80.0-96.0); MONO # 0.4 10^3/uL (0.0-0.8); MONO % 5.6 % (0.0-5.0); NEUTROPHILS # 3.3 10^3/uL (1.8-7.7); NEUTROPHILS % 50.5 % (36.0-66.0); PLATELET COUNT, AUTOMATED 399 10^3/uL (150-450); RED BLOOD COUNT 4.72 10^6/uL (4.00-5.40); WHITE BLOOD COUNT 6.6 10^3/uL (4.0-10.0)
[2018-09-02 14:49] LABS: ERYTHROCYTE SEDIMENTATION RATE 7 mm/hr (0-20)
[2018-09-02 15:00] LABS: BLOOD UREA NITROGEN 13 MG/DL (7-18); C REACTIVE PROTEIN QUANTITATIV < 0.30 MG/DL (0.00-0.30); CALCIUM LEVEL 8.6 MG/DL (8.5-10.1); CARBON DIOXIDE LEVEL 27 MEQ/L (21-32); CHLORIDE LEVEL 108 MEQ/L (98-107); CK-MB VALUE MASS < 1.0 NG/ML (<3.6); CPK CREATINE PHOSPHOKINASE 74 U/L (26-192); CREATININE FOR GFR 0.71 MG/DL (0.55-1.30); GLOMERULAR FILTRATION RATE > 60.0 (>58); GLUCOSE, FASTING 95 MG/DL (70-100); MB/CK RELATIVE INDEX 1.35 (< OR =4); POTASSIUM SERUM 4.1 MEQ/L (3.5-5.1); SODIUM LEVEL 140 MEQ/L (136-145); TROPONIN I < 0.02 NG/ML (< 0.10)
[2018-09-02] MEDS ORDERED: ISOVUE-370 76% 125ML VIAL (Q9967 PER ML) As Ordered ONE (15:15)
[2018-09-02] MEDS ORDERED: NAPR-50 PO (16:17)
[2018-09-02 16:34] VITALS: BP 157/81
--- NOTE | 2018-09-03 07:39 | REP ---
CT ANGIO CHEST: HISTORY: Chest pain. CONTRAST: Isovue 370, 75 mL. COMPARISON: 08/25/2018 There are no filling defects in the main, right and left pulmonary arteries or their branches. The lungs are clear. There is no pleural effusion. The cardiac silhouette is enlarged. Atherosclerotic calcification is present in the thoracic aorta. There is no aneurysm. Degenerative change is present in the thoracic spine. A 1.1 cm hypodensity is present in the left thyroid lobe. A calcification is present in the right lobe of the liver. IMPRESSION: 1. There is no pulmonary embolism. 2. Cardiomegaly. 3. There is a 1.1 cm hypodensity in the left thyroid lobe. This may represent a cyst. Ultrasound may be helpful for further evaluation. Electronically Signed by Barrington Cedeno MD 09/03/2018 08:07 A
--- NOTE | 2018-09-03 18:40 | ECGEPIP ---
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
--- NOTE | 2018-09-04 13:55 | ED PDOC ---
Post-Departure Follow-Up guilherme quiñonez faxed formal report of cta chest for fu Kurt Em MD Sep 04, 2018 13:55
== END 2018-09-02 16:35 | disposition home or self-care (01) ==
LOC: M ED 12:24
DX: R07.89 Other chest pain (principal); Z79.899 Other long term (current) drug therapy
CPT/HCPCS: 71275; 80048; 82550; 82553; 84484; 85025; 85379; 85652; 86140; 93005; 96374; 96375; 99284; J1885; J2270; J2930; Q9967